=== PATIENT | male | born 1960 | race Caucasian/White ===

== ENCOUNTER → 2021-01-29 | Outpatient (CLI) | payer OTHER ==
[~2021-01-29] VITALS: Ht 72 cm; Wt 98.0 kg
[~2021-01-29] MED LIST: ACETAMINOPHEN 500 MG TAB (TYLENOL) PO PRN; CASIRIVIMAB/IMDEVIMAB 1,200 MG in NS (IVPB) 250 ML IV ONE; EPINEPHrine INJECTION 1 MG/ML AMP IM PRN; ONDANSETRON 4 MG/2 ML (SDV) Z0FRAN IV PRN; diphenhydrAMINE 50 MG/ML INJ (BENADRYL) IV PRN
[2021-01-29 11:44] VITALS: BP 156/80
[2021-01-29 13:48] VITALS: BP 147/74
== END ==
LOC: INFUSION 11:36
PROVIDERS: ATTEND Family Medicine
DX: U07.1 COVID-19 (principal)